=== PATIENT | female | born 1960 | race African-American/Black ===

== ENCOUNTER 2025-01-16 18:08 | Emergency (ER) | payer MEDICAID ==
[~2025-01-16] VITALS: Ht 160 cm; Wt 86.0 kg
[2025-01-16 18:16] VITALS: O2SAT 97
[2025-01-16] MEDS ORDERED: IBUP-2030 MT (18:48)
[2025-01-16] MEDS: KETOROLAC 30MG/ML VIAL IM ONE (18:51)
[2025-01-16 18:54] VITALS: BP 155/86; PULSE 95; RESP 16; TEMP 36.7; O2SAT 99
== END 2025-01-16 18:55 | disposition home or self-care (01) ==
LOC: ER 18:08
DX: M13.861 Other specified arthritis, right knee (principal); Z90.710 Acquired absence of both cervix and uterus; Z79.899 Other long term (current) drug therapy
CPT/HCPCS: 96372; 99283; J1885; Z7610